=== PATIENT | male | born 1975 | race Caucasian/White ===

== ENCOUNTER 2017-05-29 18:15 | Emergency (ER) | payer OTHER ==
[~2017-05-29] VITALS: Ht 177.8 cm; Wt 81.6 kg
[~2017-05-29 18:15] MED LIST: ACETAMINOP160 MG/12 PO; AEROCHAMBER MV1 EACH MC; ALBUTEROL INH; AMOXICILLIN 50500 MG PO; AMOXICILLIN875 MG PO; CEPHALEXIN 500500 M2 PO; CIPRODEX OTIC7.5 ML OTIC; COMPACT COMPRE1 EACH MC; DIPHENHIST50 MG PO; DUONEB 2.5-0.5 M3 ML INH; EPIPEN0.3 MG/0.1 IM; FLEXERIL PO; GRIS-PEG250 MG PO; HYDROCODON-ACE1 EAC7 PO; HYDROCODONE-AP1 EAC6 PO; IBUPROFEN 800800 M1 PO; IBUPROFEN 800800 MG PO; LAMISIL15 GM TP; LORTAB 5-325 M1 EACH PO; LOTRIMIN30 GM TP; MEDROL DOSPAK21 TA1 PO; MEDROLDOSEPACK PO; MELOXICAM7.5 MG PO; MOBIC7.5 MG PO; NAPROSYN500 MG PO; NOHOMEMEDICATIONS; NORCO 5-325 TA1 EAC1 PO; NORCO 5-325 TA1 EACH PO; PAXIL10 MG; PEPCID20 MG PO; PERCOCET 5-3251 EACH PO; PREDNISONE 10 M10 M1 PO; PREDNISONE 20 M20 M1 PO; PREDNISONE 20 M20 MG PO; PREDNISONE50 MG PO; PROAIR HFA8.5 GM IH; TOBRAMYCIN SULFA5 ML OPHTHALMIC; TRAMADOL 50 MG50 MG PO; TYLENOL PM; VENTOLIN HFA 1818 GM INH; VENTOLIN HFA INH8 GM IH; VICODIN 5-5001 EACH PO; ZOFRAN4 MG PO; ZPAK PO
[2017-05-29 18:47] LABS: ABSOLUTE BASOPHILS 0.1 thou/uL (0.0-0.2); ABSOLUTE EOSINOPHILS 0.3 thou/uL (0.0-0.7); ABSOLUTE LYMPHOCYTES 2.9 thou/uL (0.8-5.3); ABSOLUTE MONOCYTES 0.8 thou/uL (0.0-1.2); ABSOLUTE NEUTROPHILS 3.7 thou/uL (1.6-8.1); BASOPHILS 1.3 %; EOSINOPHILS 4.1 %; HEMATOCRIT 43.4 % (42.0-52.0); HEMOGLOBIN 14.6 gm/dL (14.0-18.0); LYMPHOCYTES 36.9 %; MCHC 33.7 g/dL (28.0-37.0); MONOCYTES 10.8 %; MPV 6.5 fl. (7.2-11.1); NUCLEATED RBCS 0 /100WBC; PLATELET COUNT* 374 thou/uL (150-400); POLYS 46.9 %; RBC 4.72 mil/uL (4.50-6.00); RDW-CV 14.2 % (10.5-14.5); WBC 7.9 thou/uL (4.0-11.0)
[2017-05-29 18:55] LABS: ANION GAP 5 mmol/L (7-16); BUN 20 mg/dL (7-18); CALCIUM 9.2 mg/dL (8.5-10.1); CHLORIDE 104 mmol/L (98-107); CO2 30 mmol/L (21-32); GLUCOSE 109 mg/dL (70-99); SODIUM 139 mmol/L (136-145)
[2017-05-29 19:02] LABS: ALBUMIN 3.5 g/dL (3.4-5.0); ALKALINE PHOSPHATASE 57 U/L (46-116); LIPASE 186 U/L (73-393); SGOT 31 U/L (15-37); SGPT 51 U/L (30-65); TOTAL BILIRUBIN 0.2 mg/dL (<0.1-1.0); TOTAL PROTEIN 7.1 g/dL (6.4-8.2); TROPONIN-I LEVEL <0.06 ng/mL (<0.06)
[2017-05-29 19:31] LABS: URINE BILIRUBIN NEGATIVE (Negative); URINE BLOOD TRACE (Negative); URINE CLARITY CLEAR; URINE COLOR YELLOW; URINE GLUCOSE-RANDOM NEGATIVE (Negative); URINE KETONES NEGATIVE (Negative); URINE LEUKOCYTES NEGATIVE (Negative); URINE NITRITE NEGATIVE (Negative); URINE PROTEIN NEGATIVE (Negative); URINE UROBILINOGEN 0.2 E.U./dl (0.2-1.0)
[2017-05-29] MEDS ORDERED: OMEPRAZOLE20 M2 PO (20:02)
[2017-05-29] MEDS ORDERED: CARAFATE 1 GM TA1 G1 PO (20:02)
[2017-05-29 20:57] VITALS: BP 161/96
--- NOTE | 2017-05-30 10:11 | EKG ---
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
== END 2017-05-29 20:57 | disposition home or self-care (01) ==
LOC: M.ERS 18:15
PROVIDERS: Physician Assistant
DX: R10.10 Upper abdominal pain, unspecified (principal); R11.0 Nausea; F17.210 Nicotine dependence, cigarettes, uncomplicated; Z88.5 Allergy status to narcotic agent

== ENCOUNTER 2017-08-12 13:44 | Emergency (ER) | payer OTHER ==
[~2017-08-12] VITALS: Ht 177.8 cm; Wt 81.7 kg
[~2017-08-12 13:44] MED LIST changes: +CARAFATE 1 GM TA1 G1 PO; +OMEPRAZOLE20 M2 PO
[2017-08-12 14:06] VITALS: BP 181/100
[2017-08-12] MEDS ORDERED: TRAMADOL 50 MG50 MG PO (14:17)
[2017-08-12] MEDS ORDERED: KEFLEX500 M1 PO (14:17)
== END 2017-08-12 14:26 | disposition home or self-care (01) ==
LOC: M.ERS 13:44
DX: J02.9 Acute pharyngitis, unspecified (principal); F17.210 Nicotine dependence, cigarettes, uncomplicated; Z88.5 Allergy status to narcotic agent

== ENCOUNTER 2018-01-21 09:58 | Emergency (ER) | payer OTHER ==
[~2018-01-21] VITALS: Ht 177.8 cm; Wt 77.1 kg
[~2018-01-21 09:58] MED LIST changes: +KEFLEX500 M1 PO
[2018-01-21 10:38] LABS: ABSOLUTE BASOPHILS 0.2 thou/uL (0.0-0.2); ABSOLUTE EOSINOPHILS 0.3 thou/uL (0.0-0.7); ABSOLUTE LYMPHOCYTES 2.2 thou/uL (0.8-5.3); ABSOLUTE MONOCYTES 0.6 thou/uL (0.0-1.2); ABSOLUTE NEUTROPHILS 2.7 thou/uL (1.6-8.1); EOSINOPHILS 4.2 %; HEMATOCRIT 45.1 % (42.0-52.0); HEMOGLOBIN 15.2 gm/dL (14.0-18.0); LYMPHOCYTES 37.4 %; MCH 31.2 pg (26.0-34.0); MCHC 33.6 g/dL (28.0-37.0); MCV 92.8 fL (80.0-100.0); MONOCYTES 10.2 %; MPV 6.6 fl. (7.2-11.1); NUCLEATED RBCS 0 /100WBC; PLATELET COUNT* 370 thou/uL (150-400); POLYS 45.2 %; RBC 4.86 mil/uL (4.50-6.00); RDW-CV 14.3 % (10.5-14.5)
[2018-01-21 10:41] LABS: ANION GAP 7 mmol/L (7-16); BUN 16 mg/dL (7-18); CALCIUM 8.6 mg/dL (8.5-10.1); CHLORIDE 105 mmol/L (98-107); CO2 26 mmol/L (21-32); CREATININE 0.8 mg/dL (0.6-1.3); GLUCOSE 105 mg/dL (70-99); POTASSIUM 4.2 mmol/L (3.5-5.1); SODIUM 138 mmol/L (136-145)
[2018-01-21 11:00] LABS: ALBUMIN 3.6 g/dL (3.4-5.0); ALKALINE PHOSPHATASE 63 U/L (46-116); LIPASE 154 U/L (73-393); MAGNESIUM 2.1 mg/dL (1.8-2.4); NT-PRO BRAIN NAT PEPTIDE 22 pg/mL (<300); SGOT 22 U/L (15-37); SGPT 35 U/L (30-65); TOTAL BILIRUBIN 0.1 mg/dL (<0.1-1.0); TOTAL PROTEIN 7.5 g/dL (6.4-8.2); TROPONIN-I LEVEL <0.06 ng/mL (<0.06)
[2018-01-21 11:02] LABS: PROTIME 9.8 Seconds (9.20-11.50)
[2018-01-21 11:04] LABS: APTT 26.8 Seconds (25.0-31.3)
[2018-01-21 11:31] VITALS: BP 148/96
--- NOTE | 2018-01-21 17:25 | EKG ---
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 : 1975 Requested By: Anthony Vences Order Number: [id number] MD: Seamus Enriquez Measurements Intervals [place] Rate: 56 P: -27 [place]: 169 QRS: -43 QRSD: 101 T: 3 QT: 406 QTc: 392 Interpretive Statements Sinus arrhythmia Left anterior fascicular block Probable anteroseptal infarct, old Baseline wander in lead(s) V2 Compared to ECG 05/29/2017 18:45:21 Left anterior fascicular block now present Myocardial infarct finding still present Electronically Signed On 01-21-2018 17:25:41 CDT by Seamus Enriquez [email or web address] <ELECTRONICALLY SIGNED> By: Seamus Enriquez MD, [facility] 01/21/18 1725 1002 1002 Seamus Enriquez MD, [facility] /EPI
== END 2018-01-21 11:33 | disposition home or self-care (01) ==
LOC: M.ERS 09:58
PROVIDERS: Family Medicine
DX: R07.89 Other chest pain (principal); F17.210 Nicotine dependence, cigarettes, uncomplicated; Z88.5 Allergy status to narcotic agent

== ENCOUNTER 2018-08-16 10:30 | Emergency (ER) | payer OTHER ==
[~2018-08-16] VITALS: Ht 177.8 cm; Wt 79.4 kg
[2018-08-16 10:37] VITALS: BP 132/90
[2018-08-16] MEDS ORDERED: IBUPROFEN 800800 M1 PO (11:02)
== END 2018-08-16 11:10 | disposition home or self-care (01) ==
LOC: M.ERS 10:30
DX: S50.02XA Contusion of left elbow, initial encounter (principal); F17.210 Nicotine dependence, cigarettes, uncomplicated; Z88.5 Allergy status to narcotic agent; W22.8XXA Striking against or struck by other objects, initial encounter; Y93.89 Activity, other specified; Y92.89 Other specified places as the place of occurrence of the external cause; Y99.8 Other external cause status

== ENCOUNTER 2018-12-03 19:47 | Emergency (ER) | payer OTHER ==
[~2018-12-03] VITALS: Ht 177.8 cm; Wt 77.1 kg
[2018-12-03] MEDS ORDERED: PREDNISONE50 MG PO (20:38)
[2018-12-03] MEDS ORDERED: TRAMADOL 50 MG50 MG PO (20:38)
[2018-12-03] MEDS ORDERED: IBUPROFEN 800800 M1 PO (20:39)
[2018-12-03 21:10] VITALS: BP 143/97
== END 2018-12-03 21:11 | disposition home or self-care (01) ==
LOC: M.ERS 19:47
DX: M54.42 Lumbago with sciatica, left side (principal); F17.210 Nicotine dependence, cigarettes, uncomplicated; Z88.5 Allergy status to narcotic agent

== ENCOUNTER 2019-02-07 06:53 | Emergency (ER) | payer OTHER ==
[~2019-02-07] VITALS: Ht 177.8 cm; Wt 77.1 kg
[2019-02-07 07:08] VITALS: BP 121/76
== END 2019-02-07 07:10 | disposition home or self-care (01) ==
LOC: M.ERS 06:53
DX: J02.9 Acute pharyngitis, unspecified (principal); F17.210 Nicotine dependence, cigarettes, uncomplicated; Z90.81 Acquired absence of spleen; Z88.5 Allergy status to narcotic agent

== ENCOUNTER 2019-03-27 14:02 | Emergency (ER) | payer OTHER | END 2019-03-27 14:16 | disposition left against medical advice (07) | LOC: M.ERS 14:02 | DX: Z53.21 Procedure and treatment not carried out due to patient leaving prior to being seen by health care provider (principal) ==

== ENCOUNTER 2019-04-23 17:07 | Emergency (ER) | payer OTHER ==
[~2019-04-23] VITALS: Ht 177.8 cm; Wt 77.1 kg
[2019-04-23] MEDS ORDERED: MEDROLDOSEPACK PO (18:00)
[2019-04-23] MEDS ORDERED: TORADOL 10 MG T10 MG PO (18:00)
[2019-04-23] MEDS ORDERED: CYCLOBENZAPRINE5 MG PO (18:00)
[2019-04-23 18:51] VITALS: BP 144/100
== END 2019-04-23 18:52 | disposition home or self-care (01) ==
LOC: M.ERS 17:07
DX: M54.32 Sciatica, left side (principal); F17.210 Nicotine dependence, cigarettes, uncomplicated; Z88.5 Allergy status to narcotic agent

== ENCOUNTER 2019-06-13 11:26 | Emergency (ER) | payer OTHER ==
[~2019-06-13] VITALS: Ht 177.8 cm; Wt 77.1 kg
[~2019-06-13 11:26] MED LIST changes: +CYCLOBENZAPRINE5 MG PO; +TORADOL 10 MG T10 MG PO
[2019-06-13 11:34] VITALS: BP 135/102
== END 2019-06-13 11:55 | disposition left against medical advice (07) ==
LOC: M.ERS 11:26
DX: Z53.21 Procedure and treatment not carried out due to patient leaving prior to being seen by health care provider (principal)

== ENCOUNTER 2019-07-26 09:56 | Emergency (ER) | payer OTHER ==
[~2019-07-26] VITALS: Ht 177.8 cm; Wt 77.1 kg
[2019-07-26 10:31] LABS: HEMATOCRIT 43.8 % (42.0-52.0); HEMOGLOBIN 14.9 gm/dL (14.0-18.0); MCH 31.8 pg (26.0-34.0); MCHC 33.9 g/dL (28.0-37.0); MCV 93.7 fL (80.0-100.0); MPV 6.4 fl. (7.2-11.1); NUCLEATED RBCS 0 /100WBC; PLATELET COUNT* 408 thou/uL (150-400); RBC 4.68 mil/uL (4.50-6.00); RDW-CV 14.3 % (10.5-14.5); WBC 6.6 thou/uL (4.0-11.0)
[2019-07-26 10:42] LABS: URINE BILIRUBIN NEGATIVE (Negative); URINE BLOOD TRACE (Negative); URINE CLARITY CLEAR; URINE COLOR YELLOW; URINE GLUCOSE-RANDOM NEGATIVE (Negative); URINE KETONES NEGATIVE (Negative); URINE LEUKOCYTES-REFLEX NEGATIVE (Negative); URINE NITRITE-REFLEX NEGATIVE (Negative); URINE PROTEIN NEGATIVE (Negative); URINE SPECIFIC GRAVITY 1.025 (1.005-1.030); URINE UROBILINOGEN 0.2 E.U./dl (0.2-1.0)
[2019-07-26 10:43] LABS: CALCIUM 9.1 mg/dL (8.5-10.1); CREATININE 0.9 mg/dL (0.6-1.3); POTASSIUM 4.5 mmol/L (3.5-5.1)
[2019-07-26 10:47] LABS: ALBUMIN 3.6 g/dL (3.4-5.0); TOTAL BILIRUBIN 0.1 mg/dL (<0.1-1.0); TOTAL PROTEIN 7.3 g/dL (6.4-8.2)
[2019-07-26 10:58] LABS: INFLUENZA A ANTIGEN Negative (Negative); INFLUENZA B ANTIGEN Negative (Negative)
[2019-07-26 11:00] LABS: ABSOLUTE BASOPHILS 0.2 thou/uL (0.0-0.2); ABSOLUTE EOSINOPHILS 0.4 thou/uL (0.0-0.7); ABSOLUTE LYMPHOCYTES 3.4 thou/uL (0.8-5.3); ABSOLUTE MONOCYTES 0.3 thou/uL (0.0-1.2); ABSOLUTE NEUTROPHILS 2.3 thou/uL (1.6-8.1); PLATELET ESTIMATE ADEQUATE
[2019-07-26] MEDS ORDERED: ONDANSETRON HCL4 M2 PO (11:31)
[2019-07-26] MEDS ORDERED: BENTYL 20 MG TA20 M1 PO (11:31)
[2019-07-26 12:12] VITALS: BP 182/101
== END 2019-07-26 12:13 | disposition home or self-care (01) ==
LOC: M.ERS 09:56
PROVIDERS: Nurse Practitioner Family
DX: K52.9 Noninfective gastroenteritis and colitis, unspecified (principal); F17.210 Nicotine dependence, cigarettes, uncomplicated; Z88.5 Allergy status to narcotic agent

== ENCOUNTER 2019-09-05 15:16 | Emergency (ER) | payer OTHER ==
[~2019-09-05] VITALS: Ht 177.8 cm; Wt 81.7 kg
[~2019-09-05 15:16] MED LIST changes: +BENTYL 20 MG TA20 M1 PO; +ONDANSETRON HCL4 M2 PO
[2019-09-05] MEDS ORDERED: NORCO 5-325 TA1 EAC1 PO (15:37)
[2019-09-05 16:14] VITALS: BP 158/105
== END 2019-09-05 16:14 | disposition home or self-care (01) ==
LOC: M.ERS 15:16
DX: M23.92 Unspecified internal derangement of left knee (principal); F17.210 Nicotine dependence, cigarettes, uncomplicated; Z88.6 Allergy status to analgesic agent

== ENCOUNTER 2019-11-05 19:00 | Emergency (ER) | payer OTHER ==
[~2019-11-05] VITALS: Ht 177.8 cm; Wt 81.7 kg
[2019-11-05] MEDS ORDERED: PREDNISONE50 MG PO (19:31)
[2019-11-05] MEDS ORDERED: MOBIC15 MG PO (19:31)
[2019-11-05 19:59] VITALS: BP 152/97
== END 2019-11-05 20:00 | disposition home or self-care (01) ==
LOC: M.ERS 19:00
DX: S83.8X2A Sprain of other specified parts of left knee, initial encounter (principal); F17.210 Nicotine dependence, cigarettes, uncomplicated; Z88.6 Allergy status to analgesic agent; X50.1XXA Overexertion from prolonged static or awkward postures, initial encounter; Y93.89 Activity, other specified; Y92.89 Other specified places as the place of occurrence of the external cause; Y99.8 Other external cause status

== ENCOUNTER 2019-12-22 00:22 | Emergency (ER) | payer OTHER ==
[~2019-12-22] VITALS: Ht 177.8 cm; Wt 81.7 kg
[~2019-12-22 00:22] MED LIST changes: +MOBIC15 MG PO
[2019-12-22] MEDS ORDERED: PROAIR HFA8.5 GM INH (02:00)
[2019-12-22 02:08] VITALS: BP 152/91
--- NOTE | 2019-12-22 13:19 | EKG ---
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: : 1975 Requested By: Lucila Song Order Number: [id number] MD: Seamus Enriquez Measurements Intervals [place] Rate: 85 P: -23 [place]: 164 QRS: -46 QRSD: 96 T: 5 QT: 376 QTc: 447 Interpretive Statements Sinus rhythm Inferior infarct, old possible Compared to ECG 01/21/2018 10:02:37 Sinus arrhythmia no longer present Left anterior fascicular block persists Myocardial infarct finding still present Electronically Signed On 12-22-2019 13:19:15 CDT by Seamus Enriquez [email or web address] <ELECTRONICALLY SIGNED> By: Seamus Enriquez MD, [facility] 12/22/19 1319 0030 0030 Seamus Enriquez MD, [facility] /EPI
== END 2019-12-22 02:10 | disposition home or self-care (01) ==
LOC: M.ERS 00:22
DX: R05 Cough (principal); Z20.828 Contact with and (suspected) exposure to other viral communicable diseases; J45.909 Unspecified asthma, uncomplicated; F17.210 Nicotine dependence, cigarettes, uncomplicated; Z88.5 Allergy status to narcotic agent

== ENCOUNTER 2020-08-23 08:03 | Emergency (ER) | payer OTHER ==
[~2020-08-23] VITALS: Ht 177.8 cm; Wt 77.1 kg
[~2020-08-23 08:03] MED LIST changes: +PROAIR HFA8.5 GM INH
[2020-08-23] MEDS ORDERED: TYLENOL325 M1 PO (09:16)
[2020-08-23 09:23] VITALS: BP 126/67
== END 2020-08-23 09:24 | disposition home or self-care (01) ==
LOC: M.ERS 08:03
DX: S61.213A Laceration without foreign body of left middle finger without damage to nail, initial encounter (principal); J45.909 Unspecified asthma, uncomplicated; Z88.5 Allergy status to narcotic agent; W22.8XXA Striking against or struck by other objects, initial encounter; Y93.89 Activity, other specified; Y92.89 Other specified places as the place of occurrence of the external cause; Y99.8 Other external cause status

== ENCOUNTER 2020-12-08 18:05 | Emergency (ER) | payer OTHER ==
[~2020-12-08] VITALS: Ht 177.8 cm; Wt 72.6 kg
[~2020-12-08 18:05] MED LIST changes: +TYLENOL325 M1 PO
[2020-12-08 19:04] VITALS: BP 162/101
== END 2020-12-08 19:10 | disposition left against medical advice (07) ==
LOC: M.ERS 18:05
DX: Z53.21 Procedure and treatment not carried out due to patient leaving prior to being seen by health care provider (principal)

== ENCOUNTER 2020-12-09 21:15 | Emergency (ER) | payer OTHER ==
[~2020-12-09] VITALS: Ht 177.8 cm; Wt 72.6 kg
[2020-12-09 22:48] VITALS: BP 132/74
--- NOTE | 2020-12-10 09:18 | EKG ---
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: [place] : 1975 Requested By: Amparo Christian Order Number: [id number] MD: Oleg Russ Measurements Intervals [place] Rate: 106 P: 10 [place]: 145 QRS: -49 QRSD: 93 T: 33 QT: 330 QTc: 439 Interpretive Statements Sinus tachycardia Left anterior fascicular block septal infarct, age indeterminate Compared to ECG 12/22/2019 00:30:35 Sinus rhythm no longer present Myocardial infarct finding still present Electronically Signed On 12-10-2020 9:18:47 CDT by Oleg Russ [email or web address] <ELECTRONICALLY SIGNED> By: Oleg Russ MD, [facility] 12/10/20917 20 20 Oleg Russ MD, [facility] /EPI
== END 2020-12-09 22:48 | disposition home or self-care (01) ==
LOC: M.ERS 21:15
DX: U07.1 COVID-19 (principal); F17.210 Nicotine dependence, cigarettes, uncomplicated; J45.909 Unspecified asthma, uncomplicated; Z90.49 Acquired absence of other specified parts of digestive tract; Z88.6 Allergy status to analgesic agent

== ENCOUNTER 2020-12-12 07:33 | Emergency (ER) | payer OTHER ==
[~2020-12-12] VITALS: Ht 177.8 cm; Wt 72.6 kg
[2020-12-12] MEDS ORDERED: TESSALON PERLE100 M1 PO (08:40)
[2020-12-12] MEDS ORDERED: ZOFRAN ODT4 MG DISSOLVE (08:40)
[2020-12-12] MEDS ORDERED: FLEXERIL PO (08:40)
[2020-12-12 09:11] VITALS: BP 133/97
== END 2020-12-12 09:11 | disposition home or self-care (01) ==
LOC: M.ERS 07:33
DX: U07.1 COVID-19 (principal); J45.909 Unspecified asthma, uncomplicated; F17.210 Nicotine dependence, cigarettes, uncomplicated; Z88.5 Allergy status to narcotic agent

== ENCOUNTER 2020-12-13 17:16 | Emergency (ER) | payer OTHER ==
[~2020-12-13] VITALS: Ht 177.8 cm; Wt 72.6 kg
[~2020-12-13 17:16] MED LIST changes: +TESSALON PERLE100 M1 PO; +ZOFRAN ODT4 MG DISSOLVE
[2020-12-13 17:30] VITALS: BP 128/92
== END 2020-12-13 17:32 | disposition left against medical advice (07) ==
LOC: M.ERS 17:16
DX: Z53.21 Procedure and treatment not carried out due to patient leaving prior to being seen by health care provider (principal)